=== PATIENT | female | born 1985 | race Caucasian/White ===

== ENCOUNTER 2021-08-25 11:21 | Inpatient (IN) | payer OTHER ==
[~2021-08-25] VITALS: Ht 175.3 cm; Wt 77.3 kg
[2021-08-25 14:42] LABS: ANION GAP 8 mmol/L (8-16); CALCIUM, TOTAL 8.9 mg/dL (8.8-10.5); CARBON DIOXIDE 26 mmol/L (22-29); CHLORIDE 102 mmol/L (98-107); CREATININE 0.49 mg/dL (0.60-1.30); GLUCOSE,RANDOM 97 mg/dL (70-110); POTASSIUM 3.9 mmol/L (3.5-5.1); SODIUM SERUM 136 mmol/L (136-145); UREA NITROGEN, BLOOD 8 mg/dL (7-18)
[2021-08-25 14:46] LABS: GLOMERULAR FILTR. RATE CALC > 60 mL/min (>60)
[2021-08-25 14:49] LABS: ALANINE AMINOTRANSFERASE 43 U/L (12-78); ALBUMIN 3.6 g/dL (3.4-5.0); ALKALINE PHOSPHATASE 60 U/L (46-116); ASPARTATE AMINOTRANSFERASE 30 U/L (15-37); BILIRUBIN,TOTAL 0.3 mg/dL (0.1-1.0); TOTAL PROTEIN, SERUM 7.3 g/dL (6.4-8.2)
[2021-08-25 14:57] LABS: BASOPHILS % (AUTO) 0.3 % (0.0-2.0); EOSINOPHILS % (AUTO) 0 % (1.0-6.0); HEMATOCRIT 38.4 % (36-46); HEMOGLOBIN 12.9 g/dL (12.0-16.0); LYMPHOCYTES # (AUTO) 0.8 K/uL (1.0-4.8); LYMPHOCYTES % (AUTO) 11.3 % (22.0-44.0); MEAN CORPUSCULAR HEMOGLOBIN 26.6 pg (26.0-34.0); MEAN CORPUSCULAR HGB CONC 33.6 G/dL (31.0-37.0); MEAN CORPUSCULAR VOLUME 79 fL (80-100); MONOCYTES # (AUTO) 0.4 K/uL (0.1-1.0); MONOCYTES % (AUTO) 5.4 % (2.0-9.0); PLATELET COUNT (AUTO) 237 K/uL (150-450); RED BLOOD CELL COUNT(AUTO) 4.84 MIL/uL (4.00-5.20); RED CELL DISTRIBUTION WIDTH 13.5 % (11.5-14.5)
[2021-08-25 15:10] LABS: HCG,QUANTITATIVE < 1 mIU/mL (0-6)
[2021-08-25] MEDS ORDERED: ACETAMINOPHEN 500 MG TABLET PO ONE (15:15)
[2021-08-25] MEDS ORDERED: NICOTINE 7 MG/24 HOUR PATCH TD ONE (15:15)
[2021-08-25 15:36] LABS: COVID AG,FIA SOURCE NASAL SWAB
[2021-08-25 19:55] VITALS: BP 112/53
[2021-08-25] MEDS ORDERED: LORazepam 2 MG/ML VIAL IVP PRN (20:45)
[2021-08-25] MEDS ORDERED: LOPERAMIDE HCL 2 MG CAPSULE PO PRN (21:00)
[2021-08-25] MEDS ORDERED: METOCLOPRAMIDE HCL 5 MG/ML 2 ML VIAL IVP PRN (21:00)
[2021-08-25] MEDS: DICYCLOMINE HCL 10 MG CAPSULE PO PRN (21:02)
[2021-08-25] MEDS: TEMAZEPAM 15 MG CAPSULE PO SCH (21:02)
[2021-08-25 23:35] VITALS: BP 128/87
[2021-08-26 04:58] VITALS: BP 111/63
[2021-08-26] MEDS: DICYCLOMINE HCL 10 MG CAPSULE PO PRN ×3 (04:58→20:21)
[2021-08-26] MEDS ORDERED: INFLUENZA VIRUS VACCINE QVS 2021-22 (6MO+)/PF 60 MCG/0.5 ML SYRINGE IM. ONE (05:00)
[2021-08-26 07:30] VITALS: BP 112/65
[2021-08-26 09:48] LABS: AMPHET/METH SCREEN,URINE POSITIVE (NEGATIVE); BARBITURATE SCREEN, URINE NEGATIVE (NEGATIVE); BENZODIAZEPINES SCREEN,URINE POSITIVE (NEGATIVE); CANNABINOID SCREEN,URINE NEGATIVE (NEGATIVE); COCAINE SCREEN,URINE POSITIVE (NEGATIVE); METHADONE SCREEN, URINE NEGATIVE (NEGATIVE); OPIATE SCREEN,URINE NEGATIVE (NEGATIVE); PHENCYCLIDINE SCREEN,URINE NEGATIVE (NEGATIVE)
[2021-08-26 13:13] VITALS: BP 114/64
[2021-08-26] MEDS: LORazepam 2 MG/ML VIAL IVP PRN (13:24)
[2021-08-26] MEDS: NICOTINE 14 MG/24 HOUR PATCH TD SCH (14:37)
[2021-08-26 15:54] VITALS: BP 119/74
[2021-08-26] MEDS ORDERED: OLANZapine 5 MG RAPDIS TABLET PO PRN (17:00)
[2021-08-26 20:05] VITALS: BP 112/71
[2021-08-26] MEDS: OLANZapine 5 MG RAPDIS TABLET PO SCH (20:21)
[2021-08-26] MEDS: TEMAZEPAM 15 MG CAPSULE PO SCH (20:21)
[2021-08-27] MEDS: LORazepam 2 MG/ML VIAL IVP PRN ×3 (03:06→23:36)
[2021-08-27 05:11] VITALS: BP 112/64
[2021-08-27 07:46] VITALS: BP 122/76
[2021-08-27] MEDS ORDERED: SODIUM CHLORIDE 0.9% 1,000 ML IV ONE (09:30)
[2021-08-27] MEDS: NICOTINE 14 MG/24 HOUR PATCH TD SCH (10:18)
[2021-08-27] MEDS: FLUoxetine HCL 20 MG CAPSULE PO SCH (10:18)
[2021-08-27] MEDS: DICYCLOMINE HCL 10 MG CAPSULE PO PRN ×2 (12:07→21:13)
[2021-08-27 16:10] VITALS: BP 104/56
[2021-08-27 20:53] VITALS: BP 122/61
[2021-08-27] MEDS: TEMAZEPAM 15 MG CAPSULE PO SCH (21:12)
[2021-08-27] MEDS: OLANZapine 5 MG RAPDIS TABLET PO SCH (21:13)
[2021-08-28 04:46] VITALS: BP 102/52
[2021-08-28 08:42] VITALS: BP 129/81
[2021-08-28] MEDS: FLUoxetine HCL 20 MG CAPSULE PO SCH (09:05)
[2021-08-28] MEDS: NICOTINE 14 MG/24 HOUR PATCH TD SCH (09:05)
[2021-08-28] MEDS: DICYCLOMINE HCL 10 MG CAPSULE PO PRN ×2 (09:09→15:59)
[2021-08-28 18:23] VITALS: BP 119/68
[2021-08-28 19:15] VITALS: BP 121/62
[2021-08-28] MEDS: LORazepam 2 MG/ML VIAL IVP PRN (19:53)
[2021-08-28] MEDS: TEMAZEPAM 15 MG CAPSULE PO SCH (20:20)
[2021-08-28] MEDS: OLANZapine 5 MG RAPDIS TABLET PO SCH (20:21)
[2021-08-29] MEDS: LORazepam 2 MG/ML VIAL IVP PRN (02:57)
[2021-08-29 05:03] VITALS: BP 130/68
[2021-08-29 08:06] VITALS: BP 132/81
[2021-08-29] MEDS: DICYCLOMINE HCL 10 MG CAPSULE PO PRN ×2 (08:50→18:27)
[2021-08-29] MEDS: NICOTINE 14 MG/24 HOUR PATCH TD SCH (08:50)
[2021-08-29] MEDS: FLUoxetine HCL 20 MG CAPSULE PO SCH (08:50)
[2021-08-29 19:40] VITALS: BP 134/76
[2021-08-29] MEDS: ONDANSETRON HCL 4 MG/2 ML VIAL IVP PRN (20:05)
[2021-08-30] MEDS: TEMAZEPAM 15 MG CAPSULE PO SCH ×2 (00:36→21:00)
[2021-08-30] MEDS: OLANZapine 5 MG RAPDIS TABLET PO SCH ×2 (00:36→21:00)
[2021-08-30 00:45] VITALS: BP 141/75
[2021-08-30 01:30] VITALS: BP 110/65
[2021-08-30 04:50] VITALS: BP 137/65
[2021-08-30] MEDS: ONDANSETRON HCL 4 MG/2 ML VIAL IVP PRN ×2 (05:12→12:03)
[2021-08-30 08:17] VITALS: BP 126/62
[2021-08-30] MEDS: FLUoxetine HCL 20 MG CAPSULE PO SCH (09:00)
[2021-08-30] MEDS: NICOTINE 14 MG/24 HOUR PATCH TD SCH (09:03)
[2021-08-30] MEDS ORDERED: FLUO20CA36 PO (12:45)
[2021-08-30] MEDS ORDERED: NICO-703 TD (12:46)
[2021-08-30] MEDS ORDERED: OLAN5TAB94 PO (12:47)
[2021-08-30 16:30] VITALS: BP 126/81
[2021-08-30] MEDS: DICYCLOMINE HCL 10 MG CAPSULE PO PRN (20:38)
[2021-08-30 21:04] VITALS: BP 122/71
[2021-08-31] MEDS: TEMAZEPAM 15 MG CAPSULE PO SCH (04:05)
[2021-08-31] MEDS: DICYCLOMINE HCL 10 MG CAPSULE PO PRN (04:05)
[2021-08-31 05:44] VITALS: BP 137/92
== END 2021-08-31 06:35 | DRG 897 ==
LOC: EMS 11:30 → 6S 17:42
PROVIDERS: ADMIT Internal Medicine; ATTEND Internal Medicine
DX: F11.13 Opioid abuse with withdrawal (principal); F10.20 Alcohol dependence, uncomplicated; F31.9 Bipolar disorder, unspecified; F60.0 Paranoid personality disorder; Z20.822 Contact with and (suspected) exposure to COVID-19; Z87.891 Personal history of nicotine dependence; Z91.51 Personal history of suicidal behavior; Z88.8 Allergy status to other drugs, medicaments and biological substances; Z79.899 Other long term (current) drug therapy; Z56.0 Unemployment, unspecified
CPT/HCPCS: 71045; 80053; 84702; 85025; 99285; G0480; J2060; J2405; J2765; J7030; 36415-L1; 36415-TC